=== PATIENT | female | born 1965 | race Caucasian/White ===

== ENCOUNTER → 2023-11-26 13:47 | Outpatient (CLI) | payer OTHER, SELFPAY ==
--- NOTE | 2023-11-26 13:50 | DI.ECHO.S_ITS ---
[facility] +---------+ Hospital : : [address] : : [place] : : [id number] : : Phone: [phone] Echocardiogram Report + + :Name: DAMIAN FREIRE Study Date: 11/26/2023 Height: 60 in : :Hospital ReadingLocation: Weight: 138 lb : : Gender: Female BSA: 1.6 m2 : :: 1965 Age: 58 yrs BP: 145/93 mmHg: :Reason For Study: ABNORMAL ELECTROCARDIOGRAM : :Ordering Physician: ALONSO BAEZ Performed By: Anne-Marie Soto : :Referring: ALONSO BAEZ : + + Interpretation Summary 1. The left ventricular contractility is normal. Estimated ejection fraction is greater than 55% with no segmental wall motion abnormalities. No left ventricular hypertrophy present. Normal diastolic function present. 2. The right ventricular contractility is normal. 3. All cardiac chambers are of normal size. 4. No significant valvular abnormalities present. 5. No obvious intracardiac shunts noted. 6. No obvious intracardiac masses nor thrombi appreciated. 7. No hemodynamically significant pericardial effusion present. Conclusion: Normal biventricular function with no significant structural abnormalities. Procedure: A two-dimensional transthoracic echocardiogram with color flow and Doppler was performed. The study quality was technically adequate. There is no prior echocardiogram noted for this patient. The patient was in sinus rhythm with heart rates between 62-67 bpm during the exam. Left Ventricle: The left ventricle is normal in size and wall thickness. The ejection fraction is estimated to be 60-65%. Right Ventricle: The right ventricle is normal in size and function. Atria: The left atrial size is normal. Right atrial size is normal. There is no Doppler evidence for an interatrial shunt. Mitral Valve: The mitral valve is normal in structure and function. There is trace mitral regurgitation. Aortic Valve: The aortic valve is trileaflet. The aortic valve opens well. There is no aortic valve stenosis. No aortic regurgitation is present. Tricuspid Valve: The tricuspid valve is normal in structure and function. There is trace tricuspid regurgitation. Pulmonic Valve: The pulmonic valve leaflets are thin and pliable; valve motion is normal. There is no pulmonic valvular regurgitation. Great Vessels: The aortic root is normal size. The dimensions of the ascending aorta are normal. The IVC is of normal diameter and collapses greater than 50% with a sniff. This suggests a low right atrial pressure of 3 mm Hg. Pericardium/ Pleura There is no pericardial effusion. There is no pleural effusion. MMode/2D Measurements & Calculations LVIDd: 3.7 cm LVOT diam: 2.0 cm LVIDs: 2.3 cm Ao root diam: 2.6 cm FS: 38.4 % asc Aorta Diam: 3.0 cm EPSS: 0.62 cm Ao Arch Diam (Prox Trans): 2.8 cm IVSd: 0.70 cm LVPWd: 0.75 cm LV [place]. diameter/BSA (cm/m^2): 2.4 LV sys. diameter/BSA (cm/m^2): 1.4 LA A2 area: 16.0 cm2 RA long axis: 4.8 cm LA A4 area: 15.8 cm2 RA area: 12.5 cm2 LA length (vol): 4.7 cm RA vol: 27.7 ml LA vol: 46.1 ml RA : 17.3 ml/m2 LA vol index: 28.9 ml/m2 IVC diam: 1.5 cm RVD1 (basal): 3.6 cm RVD2 (mid): 3.2 cm TAPSE: 1.8 cm Doppler Measurements & Calculations Ao V2 max: 148.2 cm/sec LVOT Max Phan: 99.8 cm/sec Ao V2 mean: 102.7 cm/sec LV V1 max P.0 mmHg Ao max P.8 mmHg LV V1 VTI: 24.1 cm Ao mean P.7 mmHg WANDY(I,D): 2.2 cm2 Ao V2 VTI: 33.6 cm WANDY(V,D): 2.1 cm2 sev ratio: 0.72 WANDY indexed to BSA (cm^2/m^2): 1.4 MV E max phan: 74.9 cm/sec PA V2 max: 98.2 cm/sec MV A max phan: 74.1 cm/sec PA V2 mean: 73.7 cm/sec MV E/A: 1.0 PA mean P.4 mmHg Med Peak E' Phan: 8.6 cm/sec PA pr(Accel): 20.8 mmHg E/E' med: 8.7 Lat Peak E' Phan: 10.0 cm/sec E/E' lat: 7.5 E/e' average: 8.1 MV dec time: 0.20 sec SV(LVOT): 74.1 ml Reading Physician:
== END ==
PROVIDERS: PCP Internal Medicine; Referring Provider Internal Medicine; Visit Provider Internal Medicine
DX: R94.31 Abnormal electrocardiogram [ECG] [EKG] (principal)
CPT/HCPCS: 93306